=== PATIENT | male | born 1960 | race African-American/Black ===

== ENCOUNTER 2017-08-05 14:25 | Emergency (ER) | payer OTHER ==
[2017-08-05 14:32] VITALS: BP 153/75
--- NOTE | 2017-08-05 14:34 | ER Document Report ---
HPI - HPI Patient complains to provider of: right hip pain Onset: Other - friday Onset/Duration: Waxing and waning Pain Level: 4 Context: 57 yo male c/o right hip pain since friday, worse when steps on brakes, step on gas, or lay on that side. no hx hip problems.. 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 No fall. No hip replacement. Hurts only lateral hip joint/thigh area with movement. no fever. no back pain. PCP: at [facility]. No back pain or radiculopathy, no saddle anesthesia. Associated Symptoms: None Exacerbated by: Movement Relieved by: Denies Similar symptoms previously: No Recently seen / treated by doctor: No - ROS ROS below otherwise negative: Yes Systems Reviewed and Negative: Yes All other systems reviewed and negative Past Medical History - General Information source: Patient - Social History Smoking Status: Former Smoker Frequency of alcohol use: None Drug Abuse: None Lives with: Spouse/Significant other Family History: Other - Mother at 86 years old from unknown cardiac issues. Father at 72 but is not sure why. There is no history of early age onset coronary artery disease. Pulmonary Medical History: Reports: Hx Asthma - History of asthma as a child, Hx COPD Malignancy Medical History: Reports Other - liver cancer, chemo 1 year ago GI Medical History: Reports: Hx Hepatitis - Hepatitis C Musculoskeltal Medical History: Reports Hx Arthritis - hx arthritis in knees and ankles Infectious Medical History: Reports: Hx Hepatitis - Hepatitis C - Immunizations Hx Diphtheria, Pertussis, Tetanus Vaccination: Yes Vertical Provider Document - CONSTITUTIONAL Agree With Documented VS: Yes Exam Limitations: No Limitations General Appearance: Mild Distress - mild limp - INFECTION CONTROL TRAVEL OUTSIDE OF THE [place] IN LAST 30 DAYS: No - HEENT HEENT: Normocephalic - NECK Neck: Supple - MUSCULOSKELETAL/EXTREMETIES Musculoskeletal/Extremeties: Tender - lateral posterior mid hip. negative: Edema Notes: tender left lateral proximal thigh from posterior right trochantur along lateral muscle/tender proximal thigh - NEURO Level of Consciousness: Awake, Alert Motor/Sensory: No Motor Deficit, No Sensory Deficit - DERM Integumentary: No Rash Course - Re-evaluation Re-evalutation: 08/05/17 15:21 deg changes in the lumbar spine. Hip normal per rad - Vital Signs Vital signs: Temp Pulse Resp BP Pulse Ox 98.9 F 73 21 H 153/75 H 92 08/05/17 14:28 08/05/17 14:28 08/05/17 14:28 08/05/17 14:28 08/05/17 14:28 Discharge - Discharge Clinical Impression: right hip pain, right lateral thigh strain, Arthritis, low back Condition: Good Disposition: HOME, SELF-CARE Instructions: Muscle Strain ([facility]), Warm Packs ([facility], [facility]), Oral Narcotic Medication ( [facility]), Acetaminophen, Ibuprofen (General) ([facility], [facility]) Additional Instructions: follow up with [facility] no work until continue motrin 800 mg 3 x per day for inflammation warm compress a few percocet for pain, after that, take tylenol up to 4000 mg per day Prescriptions: Oxycodone HCl/Acetaminophen [Percocet 5-325 mg Tablet] 1 - 2 tab PO ASDIR PRN # 10 tablet PRN Reason: Forms: Return to Work
[2017-08-05] MEDS ORDERED: OXYCODONE HCL IR 5 MG TABLET PO ONE (14:43)
[2017-08-05] MEDS ORDERED: ONDANSETRON 4 MG TAB.RAPDIS PO ONE (14:44)
--- NOTE | 2017-08-05 15:20 | RADIOLOGY REPORT (SQ) ---
EXAM DESCRIPTION: HIP RIGHT AP/LATERAL COMPLETED DATE/TIME: 08/05/2017 3:11 pm REASON FOR STUDY: right lateral hip pain COMPARISON: None. NUMBER OF VIEWS: Two views. TECHNIQUE: AP pelvis and additional frog-leg view of the right hip. LIMITATIONS: None. FINDINGS: MINERALIZATION: Normal. RIGHT HIP: No fracture or dislocation. No worrisome bone lesions. LEFT HIP: No fracture or dislocation. No worrisome bone lesions. PUBIS AND ISCHIUM: No fracture. PELVIS: No fracture. SACRUM: No fracture or dislocation. No worrisome bone lesions. LOWER LUMBAR SPINE: Lower lumbar degenerative disc changes and spondylosis. SOFT TISSUES: No findings. OTHER: No other significant finding. IMPRESSION: Lower lumbar degenerative disc changes and spondylosis. No acute abnormality in the hip . TECHNICAL DOCUMENTATION: JOB ID: [id number] [employer]- All Rights Reserved Reading location - IP/workstation name: [email or web address]
== END 2017-08-05 15:21 | disposition home or self-care (01) ==
LOC: ER 14:25
DX: S76.911A Strain of unspecified muscles, fascia and tendons at thigh level, right thigh, initial encounter (principal); S76.019A Strain of muscle, fascia and tendon of unspecified hip, initial encounter; X58.XXXA Exposure to other specified factors, initial encounter; M25.551 Pain in right hip; J44.9 Chronic obstructive pulmonary disease, unspecified; M47.9 Spondylosis, unspecified; Z87.891 Personal history of nicotine dependence; Z85.05 Personal history of malignant neoplasm of liver; Z92.21 Personal history of antineoplastic chemotherapy
CPT/HCPCS: 99283; 73502; S0119

== ENCOUNTER 2017-11-11 20:42 | Emergency (ER) | payer OTHER ==
[2017-11-11] MEDS ORDERED: NORMAL SALINE 1000 ML 1,000 ML IV ONE (23:54)
--- NOTE | 2017-11-12 | ER Document Report ---
ED General - General Chief Complaint: Urinary Problem Stated Complaint: FEVER,CHILLS Time Seen by Provider: 11/11/17 23:41 Mode of Arrival: Wheelchair Information source: Patient Notes: Patient is a 57-year-old male who presents with chief complaint of fever and urinary frequency with dysuria started at 2 AM. Patient reports history of UTIs in the past. Patient denies any nausea, vomiting or diarrhea. Patient reports he has been drinking cranberry juice trying to attempt to flush the system. TRAVEL OUTSIDE OF THE [place] IN LAST 30 DAYS: No - Related Data Allergies/Adverse Reactions: No Known Allergies Allergy (Verified 08/05/17 14:26) Past Medical History - General Information source: Patient - Social History Smoking Status: Never Smoker Frequency of alcohol use: None Drug Abuse: None Family History: Reviewed & Not Pertinent, Other - Mother at 86 years old from unknown cardiac issues. Father at 72 but is not sure why. There is no history of early age onset coronary artery disease. - Past Medical History Cardiac Medical History: Denies: Hx Coronary Artery Disease, Hx Heart Attack, Hx Hypertension Pulmonary Medical History: Reports: Hx Asthma - History of asthma as a child, Hx COPD Denies: Hx Bronchitis, Hx Pneumonia Neurological Medical History: Denies: Hx Cerebrovascular Accident Renal/ Medical History: Reports: Other - UTI. Denies: Hx Peritoneal Dialysis Malignancy Medical History: Reports Hx Liver Cancer GI Medical History: Reports: Hx Hepatitis - Hepatitis C Musculoskeletal Medical History: Reports Hx Arthritis - hx arthritis in knees and ankles Infectious Medical History: Reports: Hx Hepatitis - Hepatitis C - Immunizations Hx Diphtheria, Pertussis, Tetanus Vaccination: Yes Review of Systems - Review of Systems Constitutional: Chills, Fever EENT: No symptoms reported Cardiovascular: No symptoms reported Respiratory: No symptoms reported Gastrointestinal: No symptoms reported Genitourinary: Dysuria, Frequency, Urgency Male Genitourinary: No symptoms reported Musculoskeletal: No symptoms reported Skin: No symptoms reported Hematologic/Lymphatic: No symptoms reported Neurological/Psychological: No symptoms reported Physical Exam - Vital signs Vitals: Temp Pulse Resp BP Pulse Ox 99.2 F 92 22 H 148/73 H 93 11/11/17 20:54 11/11/17 20:54 11/11/17 20:54 11/11/17 20:54 11/11/17 20:54 - Notes Notes: PHYSICAL EXAMINATION: GENERAL: Well-appearing, well-nourished and in no acute distress. HEAD: Atraumatic, normocephalic. EYES: Pupils equal round and reactive to light, extraocular movements intact, sclera anicteric, conjunctiva are normal. ENT: Nares patent, oropharynx clear without exudates. Moist mucous membranes. NECK: Normal range of motion, supple without lymphadenopathy LUNGS: Breath sounds clear to auscultation bilaterally and equal. No wheezes rales or rhonchi. HEART: Regular rate and rhythm without murmurs ABDOMEN: Soft, nontender, nondistended abdomen. No guarding, no rebound. No masses appreciated. Left CVA tenderness. Musculoskeletal: Normal range of motion, no pitting or edema. No cyanosis. NEUROLOGICAL: Cranial nerves grossly intact. Normal speech. Normal sensory, motor exams PSYCH: Normal mood, normal affect. SKIN: Warm, Dry, normal turgor, no rashes or lesions noted. Course - Re-evaluation Re-evalutation: This is a 57-year-old male patient with complaints of dysuria and left flank pain. Patient reports multiple episodes of urinary tract infections in the past. Patient reports that is what he believes this is. CBC reveals mild leukocytosis with a white blood count of 14.2 with a mild left shift. CMP with mild elevation of the BUN and creatinine. Urinalysis reveals large blood, moderate leukocyte esterase, 1+ bacteria. Patient is without tachycardia and is normotensive, patient does have a pulse ox in the low 90s however patient does have a history of COPD and reports that he typically wears a CPAP at night , patient denies any shortness of breath or difficulty breathing. Patient was given a 1 L normal saline bolus as well as acetaminophen 975 p.o. for his fever in the emergency department. Given that patient's vital signs are stable patient and his feel comfortable being discharged home. Patient will be given 1 g ceftriaxone IV. Patient will also be placed on oral antibiotics to take home. I had an extensive conversation with the patient and his regarding having a low threshold for return to the emergency department to include worsening symptoms, increasing fever or any other symptom that is concerning to them. Patient does have a primary care provider and they state that they will have no problem getting in to see the primary care provider in the next couple of days for a follow-up. - Vital Signs Vital signs: Temp Pulse Resp BP Pulse Ox 100.7 F H 92 13 142/69 H 91 L 11/12/17 04:00 11/11/17 20:54 11/12/17 04:00 11/12/17 04:00 11/12/17 04:00 - Laboratory Result Diagrams: 11/12/17 00:20 11/12/17 00:20 Laboratory results interpreted by me: 11/12/17 11/12/17 11/12/17 00:20 00:20 00:20 WBC 14.2 H RBC 6.04 H MCH 26.6 L RDW 15.1 H Plt Count 120 L Absolute Neutrophils 10.5 H Absolute Monocytes 1.6 H Sodium 147.2 H BUN 22 H Creatinine 1.34 H Est GFR (Non-Af Amer) 55 L Total Bilirubin 1.7 H Urine Protein 30 H Urine Blood LARGE H Ur Leukocyte Esterase MODERATE H Discharge - Discharge Clinical Impression: Urinary tract infection Qualifiers: Urinary tract infection type: acute pyelonephritis Qualified Code(s): N10 - Acute pyelonephritis Condition: Stable Disposition: HOME, SELF-CARE Additional Instructions: PYELONEPHRITIS: Your evaluation shows evidence of pyelonephritis. This is an infection in the kidney. Typical symptoms are fever, pain in the flank, pain on urination, and frequent urination. Many cases of pyelonephritis can be treated at home. Hospital care may be necessary for patients who are very ill, or elderly or . Pyelonephritis is treated with antibiotics. Be sure to take all the medication as prescribed. Drink plenty of liquids (about three quarts per day) . You may take acetaminophen for fever. You should feel significantly improved within two days. You should have a recheck of your urine in about one week to insure that the infection is gone. Return for a re-examination if your symptoms worsen in any way -- such as high fever, shaking chills, severe weakness or dizziness, severe pain, or inability to pass your urine. ANTINAUSEA MEDICATION: You have been given a medication to suppress nausea and vomiting. This type of medication can be given as a shot, pill, or suppository. It will usually last for many hours. Pills and shots usually last six to eight hours, suppositories last about 12 hours. For the typical illness, only one or two doses of the medication may be necessary. Mild lightheadedness may occur. This type of medicine can cause drowsiness. Do not drive or operate dangerous machinery while under its influence. Do not mix with alcohol. See your doctor at once if you have muscle spasms or tightness, or uncontrollable motions (particularly of the neck, mouth, or jaw). Persistent vomiting or severe lightheadedness should also be evaluated by the physician. ANTIBIOTIC THERAPY: You have been given an antibiotic prescription. It's important that you take all the medication, unless instructed otherwise by your physician. Failure to complete the entire course can result in relapse of your condition. Common side effects of antibiotics include nausea, intestinal cramping, or diarrhea. Women may develop vaginal yeast infections, and babies can get yeast (thrush) in the mouth following the use of antibiotics. Contact your physician if you develop significant side effects from this medication. Allergy to this antibiotic can result in hives, wheezing, faintness, or itching. If symptoms of allergy occur, stop the medication and call the doctor. ROCEPHIN: You have been given an injection of an antibiotic called Rocephin ( ceftriaxone). Sometimes the injection must be combined with antibiotic pills. For some infections, such as an uncomplicated ear infection, Rocephin provides all the antibiotic that's needed. The antibiotic will be in your body for about two days. For serious infections, we usually repeat doses of Rocephin daily. Side effects are very unusual following a shot. Women may develop vaginal yeast infections, and babies can get yeast (thrush) in the mouth following the use of antibiotics. Contact your physician if you have symptoms with this medication. Allergy to this antibiotic can result in hives, wheezing, faintness, or itching. If symptoms of allergy occur, call the doctor at once. TRIMETHOPRIM-SULFA: You have been given a prescription for trimethoprim-sulfa (TMS, Septra, Bactrim). This is a combination antibiotic of the sulfa class, often used for urinary tract infections, middle ear infections, bronchitis, shigella intestinal infection, and Pneumocystis pneumonia. TMS is usually well-tolerated. Occasional side effects include nausea and decreased appetite. Septra is not recommended for infants less than two months of age. Do not take this medication if you have experienced severe side effects or allergy to sulfa medicine. You should stop this medicine at once and contact your physician if you develop any rash, joint pain, shortness of breath, bruising, or jaundice ( yellow color in the skin), or if you develop any other new or unusual symptoms. ORAL NARCOTIC MEDICATION: You have been given a prescription for pain control. This medication is a narcotic. It's best taken with food, as nausea can result if taken on an empty stomach. Don't operate machinery or drive within six hours of taking this medication. Do not combine this medicine with alcohol, or with any medication which can cause sedation (such as cold tablets or sleeping pills) unless you get permission from the physician. Narcotics tend to cause constipation. If possible, drink plenty of fluids and eat a diet high in fiber and fruits. Please be aware that prescription narcotics also have the potential for abuse. People become addicted to these medications because of the general sense of wellbeing that they induce. This feeling along with a significant reduction in tension, anxiety, and aggression provides a stimulating seductive quality to these drugs. Once your pain is under control, we encourage you to discard your unused narcotics. FOLLOW-UP CARE: If you have been referred to a physician for follow-up care, call the physician s office for an appointment as you were instructed or within the next two days. If you experience worsening or a significant change in your symptoms, notify the physician immediately or return to the Emergency Department at any time for re-evaluation. Please take all medications as prescribed. Please take ibuprofen 600 mg every 6 hours as needed for pain. Use the narcotic pain medication for severe pain. Please drink plenty of fluids. Please follow-up with your primary care provider in the next 2-3 days for follow-up. Please return to the emergency department if you develop worsening pain, you began vomiting, or generally feeling unwell in any way. Prescriptions: Sulfamethoxazole/Trimethoprim [Bactrim Ds Tablet] 1 each PO BID #14 tablet Referrals: HELENA SMITH FNP [Primary Care Provider] - Follow up as needed
[2017-11-12 00:55] LABS: ABSOLUTE BASOPHILS # (AUTO) 0.1 10^3/uL (0.0-0.2); ABSOLUTE EOSINOPHILS # (AUTO) 0.1 10^3/uL (0.0-0.6); ABSOLUTE LYMPHOCYTES (AUTO) 1.9 10^3/uL (0.5-4.7); ABSOLUTE MONOCYTES (AUTO) 1.6 10^3/uL (0.1-1.4); ABSOLUTE NEUT (AUTO) 10.5 10^3/uL (1.7-8.2); BASOPHILS % (AUTO) 0.5 % (0-2); EOSINOPHILS % (AUTO) 0.5 % (0-6); HEMATOCRIT 48.1 % (37.9-51.0); HEMOGLOBIN 16.1 g/dL (13.5-17.0); LYMPHOCYTES % (AUTO) 13.7 % (13-45); MEAN CORPUSCULAR HEMOGLOBIN 26.6 pg (27.0-33.4); MEAN CORPUSCULAR HGB CONC 33.4 g/dL (32.0-36.0); MEAN CORPUSCULAR VOLUME 80 fl (80-97); MONOCYTES % (AUTO) 11.4 % (3-13); PLATELET COUNT 120 10^3/uL (150-450); RED BLOOD COUNT 6.04 10^6/uL (4.35-5.55); RED CELL DISTRIBUTION WIDTH 15.1 % (11.5-14.0); SEGMENTED NEUTROPHILS % (AUTO) 73.9 % (42-78); TOTAL CELLS COUNTED % (AUTO) 100 %; WHITE BLOOD COUNT 14.2 10^3/uL (4.0-10.5)
[2017-11-12 01:10] LABS: ALANINE AMINOTRANSFERASE 28 U/L (21-72); ALBUMIN 4.2 g/dL (3.5-5.0); ALKALINE PHOSPHATASE 89 U/L (38-126); ANION GAP 14 (5-19); ASPARTATE AMINO TRANSFERASE 27 U/L (17-59); BILIRUBIN,DIRECT 0.3 mg/dL (0.0-0.4); BILIRUBIN,TOTAL 1.7 mg/dL (0.2-1.3); BLOOD UREA NITROGEN 22 mg/dL (7-20); CALCIUM 9.9 mg/dL (8.4-10.2); CARBON DIOXIDE 27 mmol/L (22-30); CHLORIDE 106 mmol/L (98-107); GLUCOSE 101 mg/dL (75-110); SODIUM 147.2 mmol/L (137-145); TOTAL PROTEIN 8.1 g/dL (6.3-8.2)
[2017-11-12 01:35] LABS: APPEARANCE,URINE CLOUDY; BILIRUBIN,URINE NEGATIVE (NEGATIVE); COLOR,URINE YELLOW; GLUCOSE, URINE NEGATIVE (NEGATIVE); KETONES,URINE NEGATIVE (NEGATIVE); LEUKOCYTE ESTERASE,URINE MODERATE (NEGATIVE); NITRITE,URINE NEGATIVE (NEGATIVE); PROTEIN,URINE 30 mg/dL (NEGATIVE); URINE SPECIFIC GRAVITY 1.014; UROBILINOGEN,URINE NEGATIVE mg/dL (<2.0)
[2017-11-12] MEDS ORDERED: CEFTRIAXONE 1 GM/D5W RTU 1 GM/50 ML RTUPB IV ONE (01:58)
[2017-11-12] MEDS ORDERED: CEFTRIAXONE INJ 1000 MG VIAL IV ONE (02:31)
[2017-11-12] MEDS ORDERED: ACETAMINOPHEN 325 MG TABLET PO ONE (04:04)
[2017-11-12] MEDS ORDERED: HYDROCODONE/ACETAMINOPHEN 5-325 MG (6 TAB/ER DISP) PO PRN (04:11)
[2017-11-12 08:11] VITALS: BP 142/69
== END 2017-11-12 04:20 | disposition home or self-care (01) ==
LOC: ER 20:42
DX: N10 Acute pyelonephritis (principal); R50.9 Fever, unspecified; R35.0 Frequency of micturition; R30.0 Dysuria; R39.15 Urgency of urination; J44.9 Chronic obstructive pulmonary disease, unspecified
CPT/HCPCS: 36415; 87086; 85025; 87088; 80053; 81001; 87186; J0696; J7030

== ENCOUNTER 2018-04-20 19:53 | Emergency (ER) | payer OTHER ==
--- NOTE | 2018-04-20 20:56 | ER Document Report ---
ED Medical Screen (RME) - General Chief Complaint: Leg Swelling Stated Complaint: LEG PAIN AND SWELLING Time Seen by Provider: 04/20/18 20:45 Notes: 57-year-old male patient with pain swelling bruising to the left leg. 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 Over the week the discomfort got a little worse and swelling in that lower extremity got a little worse than baseline. He saw his primary care provider on 04/17/2018 and she agreed with him that it was probably a pulled muscle. She prescribed naproxen and prednisone. Since seeing his PCP, he has developed some bruising in the area and his was concerned about blood clots. Physical exam suggest this is a muscle strain and the bruising noted at the skin is due to the muscle injury and blood making it's way out over 2-week period. He does have some pitting edema to both lower extremities. I have greeted and performed a rapid initial assessment of this patient. A comprehensive ED assessment and evaluation of the patient, analysis of test results and completion of the medical decision making process will be conducted by additional ED providers. TRAVEL OUTSIDE OF THE [place] IN LAST 30 DAYS: No - Related Data Allergies/Adverse Reactions: No Known Allergies Allergy (Verified 08/05/17 14:26) Past Medical History - Social History Chew tobacco use (# tins/day): No Frequency of alcohol use: None Drug Abuse: None - Past Medical History Cardiac Medical History: Denies: Hx Coronary Artery Disease, Hx Heart Attack, Hx Hypertension Pulmonary Medical History: Reports: Hx Asthma - History of asthma as a child, Hx COPD Denies: Hx Bronchitis, Hx Pneumonia Neurological Medical History: Denies: Hx Cerebrovascular Accident Renal/ Medical History: Denies: Hx Peritoneal Dialysis Malignancy Medical History: Reports Hx Liver Cancer GI Medical History: Reports: Hx Hepatitis - Hepatitis C Musculoskeltal Medical History: Reports Hx Arthritis - hx arthritis in knees and ankles Infectious Medical History: Reports: Hx Hepatitis - Hepatitis C - Immunizations Hx Diphtheria, Pertussis, Tetanus Vaccination: Yes Physical Exam - Vital signs Vitals: Temp Pulse Resp BP Pulse Ox 98.3 F 72 16 131/72 H 94 04/20/18 20:10 04/20/18 20:10 04/20/18 20:10 04/20/18 20:10 04/20/18 20:10 Course - Vital Signs Vital signs: Temp Pulse Resp BP Pulse Ox 98.3 F 72 16 131/72 H 94 04/20/18 20:10 04/20/18 20:10 04/20/18 20:10 04/20/18 20:10 04/20/18 20:10 Doctor's Discharge - Discharge Referrals: HELENA SMITH FNP [Primary Care Provider] - Follow up as needed
[2018-04-20 21:13] LABS: ABSOLUTE LYMPHOCYTES (AUTO) 2.3 10^3/uL (0.5-4.7); ABSOLUTE MONOCYTES (AUTO) 1.2 10^3/uL (0.1-1.4); ABSOLUTE NEUT (AUTO) 8.7 10^3/uL (1.7-8.2); BASOPHILS % (AUTO) 0.3 % (0-2); EOSINOPHILS % (AUTO) 0.1 % (0-6); HEMATOCRIT 48.2 % (37.9-51.0); HEMOGLOBIN 16.1 g/dL (13.5-17.0); LYMPHOCYTES % (AUTO) 18.9 % (13-45); MEAN CORPUSCULAR HEMOGLOBIN 26.5 pg (27.0-33.4); MEAN CORPUSCULAR HGB CONC 33.4 g/dL (32.0-36.0); MEAN CORPUSCULAR VOLUME 79 fl (80-97); MONOCYTES % (AUTO) 10.1 % (3-13); PLATELET COUNT 140 10^3/uL (150-450); RED BLOOD COUNT 6.07 10^6/uL (4.35-5.55); RED CELL DISTRIBUTION WIDTH 15.3 % (11.5-14.0); SEGMENTED NEUTROPHILS % (AUTO) 70.6 % (42-78); TOTAL CELLS COUNTED % (AUTO) 100 %; WHITE BLOOD COUNT 12.3 10^3/uL (4.0-10.5)
[2018-04-20 21:23] LABS: ALANINE AMINOTRANSFERASE 32 U/L (21-72); ALBUMIN 4.2 g/dL (3.5-5.0); ALKALINE PHOSPHATASE 87 U/L (38-126); ANION GAP 7 (5-19); ASPARTATE AMINO TRANSFERASE 27 U/L (17-59); BILIRUBIN,DIRECT 0.2 mg/dL (0.0-0.4); BILIRUBIN,TOTAL 0.7 mg/dL (0.2-1.3); BLOOD UREA NITROGEN 19 mg/dL (7-20); CALCIUM 10.1 mg/dL (8.4-10.2); CARBON DIOXIDE 27 mmol/L (22-30); CHLORIDE 108 mmol/L (98-107); CREATINE KINASE 105 U/L (55-170); GLUCOSE 113 mg/dL (75-110); INTERNATIONAL RATION (INR) 1.02; POTASSIUM 4.1 mmol/L (3.6-5.0); PROTHROMBIN TIME 13.9 SEC (11.4-15.4); SODIUM 141.6 mmol/L (137-145); TOTAL PROTEIN 7.6 g/dL (6.3-8.2)
--- NOTE | 2018-04-20 23:18 | ER Document Report ---
ED Extremity Problem, Lower - General Chief Complaint: Leg Swelling Stated Complaint: LEG PAIN AND SWELLING Time Seen by Provider: 04/20/18 20:45 Notes: Patient is a 57-year-old male presents to the emergency department for generalized swelling and pain noted to the left proximal calf. 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 Patient states he initially thought the pain was getting better but then realized in the last 72 hours the pain had increased. Pt. stated he went to his PCP on Friday who gave him naproxen and prednisone. Patient states this evening he noted that there was even more swelling increased pain when he flexes his left ankle and an area of ecchymosis which is why he presents to the emergency room. Past medical history: Liver cancer, hypertension, hyperlipidemia Medications: Patient is unsure of current medications but denies any blood thinners Allergies: None TRAVEL OUTSIDE OF THE [place] IN LAST 30 DAYS: No - Related Data Allergies/Adverse Reactions: No Known Allergies Allergy (Verified 08/05/17 14:26) Past Medical History - General Information source: Patient - Social History Smoking Status: Former Smoker Chew tobacco use (# tins/day): No Frequency of alcohol use: None Drug Abuse: None Family History: Reviewed & Not Pertinent, Other Patient has suicidal ideation: No Patient has homicidal ideation: No - Past Medical History Cardiac Medical History: Denies: Hx Coronary Artery Disease, Hx Heart Attack, Hx Hypertension Pulmonary Medical History: Reports: Hx Asthma - History of asthma as a child, Hx COPD Denies: Hx Bronchitis, Hx Pneumonia Neurological Medical History: Denies: Hx Cerebrovascular Accident Renal/ Medical History: Denies: Hx Peritoneal Dialysis Malignancy Medical History: Reports Hx Liver Cancer GI Medical History: Reports: Hx Hepatitis - Hepatitis C Musculoskeletal Medical History: Reports Hx Arthritis - hx arthritis in knees and ankles Infectious Medical History: Reports: Hx Hepatitis - Hepatitis C - Immunizations Hx Diphtheria, Pertussis, Tetanus Vaccination: Yes Review of Systems - Review of Systems Constitutional: No symptoms reported EENT: No symptoms reported Cardiovascular: No symptoms reported Respiratory: No symptoms reported Gastrointestinal: No symptoms reported Genitourinary: No symptoms reported Male Genitourinary: No symptoms reported Musculoskeletal: See HPI Skin: See HPI Hematologic/Lymphatic: See HPI Neurological/Psychological: No symptoms reported Physical Exam - Vital signs Vitals: Temp Pulse Resp BP Pulse Ox 98.3 F 72 16 131/72 H 94 04/20/18 20:10 04/20/18 20:10 04/20/18 20:10 04/20/18 20:10 04/20/18 20:10 - Notes Notes: GENERAL: Obese alert, interacts well. No acute distress. HEAD: Normocephalic, atraumatic. EYES: Pupils equal, round, and reactive to light. Extraocular movements intact. ENT: Oral mucosa moist, tongue midline. NECK: Full range of motion. Supple. Trachea midline. LUNGS: Clear to auscultation bilaterally, no wheezes, rales, or rhonchi. No respiratory distress. HEART: Regular rate and rhythm. No murmur ABDOMEN: Soft, non-tender. Non-distended. Bowel sounds present in all 4 quadrants. EXTREMITIES: Moves all 4 extremities spontaneously. normal radial and dorsalis pedis pulses bilaterally. Area of ecchymosis noted distal left calf. Swelling distal left calf noted as well as pain upon flexing and extending of the left ankle. Very minor nonpitting edema noted bilateral lower extremities to the ankles. BACK: no cervical, thoracic, lumbar midline tenderness. No saddle anesthesia, normal distal neurovascular exam. NEUROLOGICAL: Alert and oriented x3. Normal speech. cranial nerves II through XII grossly intact PSYCH: Normal affect, normal mood. SKIN: Warm, dry, normal turgor. Course - Re-evaluation Re-evalutation: 04/20/18 23:[address] Nghia Ruiz who read the Doppler study and stated there was no DVT. Discussed this at length with patient at bedside. Discussed continuing treatments by his primary care provider and return to the emergency room for any other worsening symptoms. Patient voices understanding, stable for discharge. - Vital Signs Vital signs: Temp Pulse Resp BP Pulse Ox 98.1 F 66 20 158/59 H 95 04/20/18 23:29 04/20/18 23:29 04/20/18 23:29 04/20/18 23:29 04/20/18 23:29 - Laboratory Result Diagrams: 04/20/18 21:00 04/20/18 21:00 Laboratory results interpreted by me: 04/20/18 04/20/18 21:00 21:00 WBC 12.3 H RBC 6.07 H MCV 79 L MCH 26.5 L RDW 15.3 H Plt Count 140 L Absolute Neutrophils 8.7 H Chloride 108 H Glucose 113 H Discharge - Discharge Clinical Impression: Hematoma Left leg injury Qualifiers: Encounter type: initial encounter Qualified Code(s): S89.92XA - Unspecified injury of left lower leg, initial encounter Condition: Stable Disposition: HOME, SELF-CARE Instructions: Hematoma ([facility]) Additional Instructions: As we discussed your ultrasound reveals no evidence of a blood clot. Please continue treatment modalities by primary care provider and return to the emergency room for any other concerning symptoms. Please follow-up with your primary care provider in the next 24-48 hours. Referrals: HELENA SMITH FNP [Primary Care Provider] - Follow up as needed
[2018-04-20 23:31] VITALS: BP 158/59
--- NOTE | 2018-04-21 09:42 | XCELERA REPORT ---
[address] [facility] [address] [facility] Ext[facility] Venous Evaluation Procedure: Color flow and duplex imaging of the veins of the left lower extremity as well as the right Common Femoral vein. Right Sided Venous Evaluation The right common femoral vein is fully compressible. Spontaneous and phasic flow is present in the right common femoral vein. Left Sided Venous Evaluation Normal vessel filling wall to wall, compression and augmentation as well as Colour flow down to the infrageniculate veins. Critical Findings Discussed with provider Sarita at about 2100. Interpretation Summary No duplex evidence of DVT or obstruction in the left lower extremity nor in the right Common Femoral vein. Name: RONI PITTMAN Age: 57 yrs Gender: Male : 1960 Patient Status: Emergency Patient Location: ER Study Date: 04/20/2018 09:43 PM Reason For Study: left lower, swelling, pain Ordering Physician: LUPE SUAREZ Performed By: Lolis French : LUPE SUAREZ > Nghia Ruiz
== END 2018-04-20 23:38 | disposition home or self-care (01) ==
LOC: ER 19:53
DX: S89.92XA Unspecified injury of left lower leg, initial encounter (principal); M79.89 Other specified soft tissue disorders; X50.0XXA Overexertion from strenuous movement or load, initial encounter
CPT/HCPCS: 36415; 80053; 82550; 85025; 85610; 93971; 99284